=== PATIENT | male | born 1970 | race Caucasian/White ===

== ENCOUNTER 2024-12-27 08:14 | Outpatient (OUT) | payer OTHER, SELFPAY ==
--- NOTE | 2024-12-27 | XR_ITS ---
The [address] [address] Patient Name: JOSSELYN COHEN MRN: [id number] date: 1970 Sex: M Assigned Patient Location: LAB Current Patient Location: LAB Accession/Order Number: [id number] Exam Date: 12/27/2024 08:30 Report Date: 12/27/2024 14:57 At the request of: RAUL MEIER MD Procedure: XR abdomen 1V XR abdomen 1V 12/27/2024 8:34 AM SIGNS AND SYMPTOMS: ^Kidney Stones, N20.0 PROTOCOL: Frontal radiograph of the abdomen and pelvis COMPARISON: 10/08/2020 FINDINGS: Multiple radiodense renal stones are noted bilaterally measuring up to 8 mm in greatest dimension on the left and 9 mm in greatest dimension on the right. No evidence of ureteral or bladder stone. The bony structures are within normal limits. XR/XR abdomen 1V IMPRESSION: Multiple radiodense renal stones are noted bilaterally measuring up to 8 mm in greatest dimension on the left and 9 mm in greatest dimension on the right. No evidence of ureteral or bladder stone. Impression dictated by: Olayinka Carrion M.D. 12/27/2024 2:57 PM Dictation Location: [place] [address] Electronically authenticated by: [id number] Y Date: 12/27/2024 14:57
[2024-12-27 09:35] LABS: Prostate Specific Antigen Dx 3.32 ng/mL (<=4.00)
== END 2024-12-27 08:15 | disposition home or self-care (01) ==
PROVIDERS: Visit Provider Urology
DX: N20.0 Calculus of kidney (principal); R97.20 Elevated prostate specific antigen [PSA]
CPT/HCPCS: 36415; 74018; 84153

== ENCOUNTER 2025-01-13 13:48 | Outpatient (OUT) | payer OTHER, SELFPAY ==
--- OUTSIDE RECORDS SUMMARY | 2025-01-13 13:52 | XMS_ITS | Patient Health Record ---
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 Name Role Phone Usama Garcia Primary Care Provider Allergies No Known Allergies Reason For Referral No Information Medications Medication SIG (Take, Route, Frequency, Duration) Notes Start Date End Date Status Fenofibrate 145 MG 1 tablet Orally Once a day; D uration: 30 days 06/22/2022ctiveLisinopril 5 MG1 tablet Orally Once a day; Duration: 30 days 06/22/2022ctiveSimvastatin 40 MG1 tablet in the evening Orally Once a day; Duration: 30 days06/22/2022ctiveLevothyroxine Sodium 50 MCG1 tablet in the morning on an empty stomach Orally Once a day; Duration: 30 days06/22/2022ctive Albuterol Sulfate HFA 108 (90 Base) MCG/ACT1 puff as needed Inhalation every 4 hrs06/22/2022ctive Plan Of Treatment No Information
--- NOTE | 2025-01-13 13:54 | ECG_ITS ---
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
[2025-01-13 15:02] LABS: Anion Gap 12.7; Blood Urea Nitrogen 16.0 mg/dL (7.0-18.0); Calcium 9.5 mg/dL (8.5-10.1); Carbon Dioxide 28.4 mmol/L (21.0-32.0); Chloride 102 mmol/L (98-107); Estimated GFR (African America >60 (>=60 mL/min/1.73m^2); Estimated GFR (Non-African Ame >60 (>=60 mL/min/1.73m^2); Glucose 87 mg/dL (74-106); Potassium 4.1 mmol/L (3.5-5.1); Sodium 139 mmol/L (136-145)
[2025-01-13 15:04] LABS: Hematocrit 46.0 % (42.0-54.0); Hemoglobin 15.5 g/dL (14.0-18.0); Immature Granulocytes Abs Auto 0.02 10^3/uL (0.00-0.03); Immature Granulocytes Pct Auto 0.2 % (0.0-0.5); Lymphocytes Absolute Auto 2.5 10^3/uL (1.2-3.8); Mean Corpuscular HGB Conc 33.7 g/dL (29.9-35.2); Mean Corpuscular Hemoglobin 29.9 pg (25.9-34.0); Mean Corpuscular Volume 88.8 fL (80.0-94.0); Platelet Count 241 10^3/uL (150-450); Red Blood Count 5.18 10^6/uL (4.70-6.10); White Blood Count 8.3 10^3/uL (4.0-11.0)
[2025-01-13 15:10] LABS: INR 0.97; Partial Thromboplastin Time 25.9 sec (22.3-36.2); Prothrombin Time 10.3 sec (9.0-11.6)
== END 2025-01-13 13:49 | disposition home or self-care (01) ==
PROVIDERS: Visit Provider Urology
DX: Z01.810 Encounter for preprocedural cardiovascular examination (principal); Z01.812 Encounter for preprocedural laboratory examination; N20.0 Calculus of kidney; G47.30 Sleep apnea, unspecified; E03.9 Hypothyroidism, unspecified; E78.5 Hyperlipidemia, unspecified; R97.20 Elevated prostate specific antigen [PSA]; N40.0 Benign prostatic hyperplasia without lower urinary tract symptoms; I10 Essential (primary) hypertension
CPT/HCPCS: 36415; 80048; 85025; 85610; 85730; 93005; G0463

== ENCOUNTER 2025-01-13 13:54 | Outpatient (OUT) | payer OTHER, SELFPAY ==
--- NOTE | 2025-01-13 14:48 | PM.PRESUREVA ---
History of Present Illness History of Present Illness Chief complaint: LEFT KIDNEY STONE, S/P RIGHT STENT Narrative: Mr. Colin Banks is a pleasant 54 year old male who presents to presurgical testing [facility] Medical History (Updated 01/13/25 @ 14:13 by Bhakti Jamison) Sleep apnea ?G47.30 - Sleep apnea, unspecified (ICD-10) Hypothyroidism ?E03.9 - Hypothyroidism, unspecified (ICD-10) Postoperative nausea and vomiting ?R11.2 - Nausea with vomiting, unspecified (ICD-10) ?Z98.890 - Other specified postprocedural states (ICD-10) DVT (deep venous thrombosis) ?I82.409 - Acute embolism and thrombosis of unspecified deep veins of unspecified lower extremity (ICD-10) Thyroid disease ?E07.9 - Disorder of thyroid, unspecified (ICD-10) Right flank pain ?R10.A1 - (ICD-10) Post-void dribbling ?N39.43 - Post-void dribbling (ICD-10) Microscopic hematuria ?R31.29 - Other microscopic hematuria (ICD-10) Hypertension ?I10 - Essential (primary) hypertension (ICD-10) Kidney stone ?N20.0 - Calculus of kidney (ICD-10) Hyperlipidemia ?E78.5 - Hyperlipidemia, unspecified (ICD-10) Family history of prostate cancer ?Z80.42 - Family history of malignant neoplasm of prostate (ICD-10) Elevated PSA ?R97.20 - Elevated prostate specific antigen [PSA] (ICD-10) Chronic prostatitis ?N41.1 - Chronic prostatitis (ICD-10) BPH with urinary obstruction ?N40.1 - Benign prostatic hyperplasia with lower urinary tract symptoms (ICD-10) ?N13.8 - Other obstructive and reflux uropathy (ICD-10) Acquired hypothyroidism ?E03.9 - Hypothyroidism, unspecified (ICD-10) Surgical History (Updated 01/13/25 @ 10:24 by Bhakti Jamison) History of arthroscopic knee surgery ?Z98.890 - Other specified postprocedural states (ICD-10) History of extracorporeal shockwave lithotripsy (ESWL) ?Z98.890 - Other specified postprocedural states (ICD-10) History of prostate biopsy ?Z98.890 - Other specified postprocedural states (ICD-10) Family History (Updated 01/13/25 @ 14:10 by Bhakti Jamison) Other Family history of hypertension Family history of seizures Family history of skin cancer Social History (Updated 01/13/25 @ 14:08 by Bhakti Jamison) Within the past year, how often did you have a drink containing alcohol: never Score interpretation: A score less than 4 is consistent with normal alcohol consumption. 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 Highest level of school completed/degree received: high school graduate Meds Home Medications and Allergies Home Medications ?Medication ?Instructions ?Recorded ?Confirmed ?Type alfuzosin 10 mg tablet,extended 10 mg PO DAILY 01/13/25 01/13/25 History release 24 hr aspirin 81 mg capsule 81 mg PO DAILY 01/13/25 01/13/25 History doxycycline hyclate 100 mg capsule 100 mg PO BID 01/13/25 01/13/25 History dutasteride 0.5 mg capsule 0.5 mg PO DAILY 01/13/25 01/13/25 History fenofibrate 150 mg capsule 150 mg PO DAILY 01/13/25 01/13/25 History gabapentin 400 mg capsule 400 mg PO BEDTIME 01/13/25 01/13/25 History hydrochlorothiazide 12.5 mg capsule 12.5 mg PO DAILY 01/13/25 01/13/25 History levothyroxine 50 mcg tablet 50 mcg PO DAILY 01/13/25 01/13/25 History lisinopril 5 mg tablet 5 mg PO DAILY 01/13/25 01/13/25 History potassium bicarbonate-citric acid 20 meq PO DAILY 01/13/25 01/13/25 History 20 mEq effervescent tablet (Effer-K) simvastatin 40 mg tablet 40 mg PO DAILY 01/13/25 01/13/25 History Allergies Allergy/AdvReac Type Severity Reaction Status Date / Time No Known Drug Allergies Allergy Verified 01/13/25 14:06
--- NOTE | 2025-01-15 09:16 | PM.PRESUREVA ---
History of Present Illness History of Present Illness Chief complaint: LEFT KIDNEY STONE, S/P RIGHT STENT Narrative: Mr. Colin Banks is a pleasant 54-year-old male who presents to presurgical testing with complaints of bilateral flank pain. Diagnosis of right kidney stone and left kidney stone he is scheduled for cystoscopy, right retrograde, right ureter laser, possible right stent placement with Dr. Aquino on January 22, 2025. He is scheduled for cystoscopy, left retrograde, left ureter, laser, possible left stent placement and possible right stent placement removal with Dr. Aquino on 01/27/2025 Review of Systems ROS Narrative REVIEW OF SYSTEMS: Negative except as stated in HPI, ten or more systems reviewed. Constitutional: No fever, chills, weakness ENT: No sore throat or epistaxis Cardiovascular: No edema, chest pain, palpitations, or activity intolerance Respiratory: No shortness of breath, cough, or wheezing Musculoskeletal: No joint pain or swelling Gastrointestinal: No abdominal pain, constipation, diarrhea, or vomiting Genitourinary: No dysuria or hematuria complains of bilateral intermittent flank pain Neurological: No numbness, tingling, weakness, or headache Psychiatric: No mood changes [facility] Medical History (Updated 01/15/25 @ 09:26 by Bhakti Jamison) Sleep apnea ?G47.30 - Sleep apnea, unspecified (ICD-10) Hypothyroidism ?E03.9 - Hypothyroidism, unspecified (ICD-10) Postoperative nausea and vomiting ?R11.2 - Nausea with vomiting, unspecified (ICD-10) ?Z98.890 - Other specified postprocedural states (ICD-10) DVT (deep venous thrombosis) ?I82.409 - Acute embolism and thrombosis of unspecified deep veins of unspecified lower extremity (ICD-10) Thyroid disease ?E07.9 - Disorder of thyroid, unspecified (ICD-10) Right flank pain ?R10.A1 - (ICD-10) Post-void dribbling ?N39.43 - Post-void dribbling (ICD-10) Microscopic hematuria ?R31.29 - Other microscopic hematuria (ICD-10) Hypertension ?I10 - Essential (primary) hypertension (ICD-10) Kidney stone ?N20.0 - Calculus of kidney (ICD-10) Hyperlipidemia ?E78.5 - Hyperlipidemia, unspecified (ICD-10) Family history of prostate cancer ?Z80.42 - Family history of malignant neoplasm of prostate (ICD-10) Elevated PSA ?R97.20 - Elevated prostate specific antigen [PSA] (ICD-10) Chronic prostatitis ?N41.1 - Chronic prostatitis (ICD-10) BPH with urinary obstruction ?N40.1 - Benign prostatic hyperplasia with lower urinary tract symptoms (ICD-10) ?N13.8 - Other obstructive and reflux uropathy (ICD-10) Acquired hypothyroidism ?E03.9 - Hypothyroidism, unspecified (ICD-10) Surgical History (Updated 01/13/25 @ 10:24 by Bhakti Jamison) History of arthroscopic knee surgery ?Z98.890 - Other specified postprocedural states (ICD-10) History of extracorporeal shockwave lithotripsy (ESWL) ?Z98.890 - Other specified postprocedural states (ICD-10) History of prostate biopsy ?Z98.890 - Other specified postprocedural states (ICD-10) Family History (Updated 01/13/25 @ 14:10 by Bhakti Jamison) Other Family history of hypertension Family history of seizures Family history of skin cancer Social History (Updated 01/13/25 @ 14:08 by Bhakti Jamison) Within the past year, how often did you have a drink containing alcohol: never Score interpretation: A score less than 4 is consistent with normal alcohol consumption. 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 Highest level of school completed/degree received: high school graduate Meds Home Medications and Allergies Home Medications ?Medication ?Instructions ?Recorded ?Confirmed ?Type alfuzosin 10 mg tablet,extended 10 mg PO DAILY 01/13/25 01/13/25 History release 24 hr aspirin 81 mg capsule 81 mg PO DAILY 01/13/25 01/13/25 History doxycycline hyclate 100 mg capsule 100 mg PO BID 01/13/25 01/13/25 History dutasteride 0.5 mg capsule 0.5 mg PO DAILY 01/13/25 01/13/25 History fenofibrate 150 mg capsule 150 mg PO DAILY 01/13/25 01/13/25 History gabapentin 400 mg capsule 400 mg PO BEDTIME 01/13/25 01/13/25 History hydrochlorothiazide 12.5 mg capsule 12.5 mg PO DAILY 01/13/25 01/13/25 History levothyroxine 50 mcg tablet 50 mcg PO DAILY 01/13/25 01/13/25 History lisinopril 5 mg tablet 5 mg PO DAILY 01/13/25 01/13/25 History potassium bicarbonate-citric acid 20 meq PO DAILY 01/13/25 01/13/25 History 20 mEq effervescent tablet (Effer-K) simvastatin 40 mg tablet 40 mg PO DAILY 01/13/25 01/13/25 History Allergies Allergy/AdvReac Type Severity Reaction Status Date / Time No Known Drug Allergies Allergy Verified 01/13/25 14:06 Exam Narrative Exam Narrative: Constitutional: Awake, alert, comfortable, well-appearing, nontoxic, interactive, vital signs as charted Head: Normocephalic, atraumatic Eyes: Conjunctiva and lids normal to inspection, pupils normal ENT: Tympanic membranes pearly collins, nonerythematous, noninjected, naris patent, posterior oropharynx clear, oral mucosa moist Neck: Supple, normal appearance, normal range of motion, no meningeal signs, no lymphadenopathy Respiratory: No respiratory distress, breath sounds clear Cardiovascular: Regular rate and rhythm, strong and regular heart tones Abdomen: Nontender, normal bowel sounds, soft, mild bilateral CVA tenderness Musculoskeletal: Normal gait, no swelling or edema Skin: No rashes or induration, no lesions, only visible skin inspected Neuro: No neurological deficits, normal sensation Psychiatric: Oriented ?3, normal affect Assessment and Plan Assessment and Plan (1) Kidney stone on left side: (2) Right kidney stone: Plan He is scheduled for cystoscopy, right retrograde, right ureter, laser, possible right stent placement on 01/22/[address] Aquino. He is scheduled for cystoscopy, left retrograde, left ureter, laser, possible left stent placement, and possible right stent removal on 01/27/[address] Aquino.
== END 2025-01-13 13:55 | disposition home or self-care (01) ==
PROVIDERS: Visit Provider Urology
DX: Z01.818 Encounter for other preprocedural examination (principal); N20.0 Calculus of kidney
CPT/HCPCS: G0463

== ENCOUNTER 2025-01-22 06:38 | Day surgery (SDC) | payer OTHER, SELFPAY ==
[2025-01-13 14:08] VITALS: BP 148/91; TEMP 36.4; O2SAT 97; BMI 32.3
[2025-01-22] VITALS (10 sets, daily range): BP systolic 129–140; BP diastolic 69–97; PULSE 75–97; TEMP 36.2–36.6; O2SAT 94–98; BMI 32.1
--- OUTSIDE RECORDS SUMMARY | 2025-01-22 06:42 | XMS_ITS | Patient Health Record ---
Author Organization The [facility] in [place] Address [address] [place] [address] Care Team Providers Care Decatizer Name Role Phone Usama Garcia Primary Care [...]
[2025-01-22] MEDS: FAMOTIDINE/PF 20 MG/2 ML VIAL IV (07:25)
[2025-01-22] MEDS: CEFAZOLIN SODIUM 2 GM/50 ML D5W PREMIX IV (07:29)
--- NOTE | 2025-01-22 08:37 | PM.URSON ---
Urology Surgery Operative Note Operative Note Procedure Date: 01/22/25 Time Out Performed: yes Pre-op Diagnosis: Recurrent bilateral nephrolithiasis Post-op Diagnosis: same as pre-op Procedures performed: 1. Cystoscopy. 2. Right ureteroscopy. 3. Right pyeloscopy. 4. Right renal calculi basket extraction x 4. 5. Thulium laser lithotripsy of right renal calculi. 6. Placement of 6 Congolese variable length right ureteral stent Anesthesia: SONAM Primary Surgeon: Ludwig Aquino Complications: None Estimated blood loss (mL): 5 Findings: 1. Multiple Sheldon's plaques in the upper mid and lower pole calyces. 2. Multiple calculi in the upper mid and lower poles Specimens: 1. Right renal calculi for stone analysis Drains: 6 Congolese variable length right ureteral stent Indications for Procedures: This gentleman has recurrent bilateral nephrolithiasis. The stone burden is a bit larger on the right side. He now presents for definitive endoscopic right stone manipulation and probable stent placement. He has signed an informed consent after risks were explained. Detailed description of Procedure: The patient was brought to the operating room and placed on the operating room table in the supine position. SCDs were placed on the lower extremities and turned on and functioning during the entire case. Timeout was done by all parties in the room. We all agreed upon the patient's identification and the planned procedures for this patient. Genn. anesthesia was then administered. The patient was then repositioned into the modified dorsal lithotomy position. All pressure points were satisfactorily padded. Genitalia were sterilely prepped and draped in usual fashion. I started by passing a 22 Congolese Olympus cystoscope per urethra and into the bladder. The anterior urethra was normal. The prostatic urethra revealed a dramatic trilobar obstruction of his prostate. The median lobe was extremely large and nearly coapted anteriorly. Panendoscopy in the bladder revealed high-grade trabeculation diffusely. I then passed a Glidewire through the scope and cannulated the right ureter and guided up into the kidney. The scope was removed. A 10/12 Congolese ureteral access sheath was then passed over the wire and slid up to the L5 position. The wire and stylette were then removed. I then passed a flexible ureteroscope through the access sheath and into the ureter. I then ascended up the ureter and then went into the kidney. I looked into the upper mid and lower pole calyces. There were stones in all of the calyces. There were Sheldon's plaques in all of the calyces. I started in the upper pole. I used a 0 tip nitinol basket and I was able to engage the stone and extracted down and out and this was sent for stone analysis. There were no stones in the other upper pole calyx. I then went to the midpole calyces. There was a larger stone burden here. I then used the 270 Angstrom laser fiber through the scope and with the thulium laser first at 7 W then at 10 W on the dusting mode I was able to entirely dust this larger stone burden to submillimeter flecks. Sheldon's plaques were noted in the midpole calyces also. I then went to the lower pole calyces and I was able to basket a few stones there and these were all removed. Upon completion, the right kidney was free of all stones within the collecting system. The scope was removed. I then passed a Glidewire through the sheath up into the kidney and the access sheath was removed. The cystoscope was backloaded over the wire and passed into the bladder. I then slid a 6 Congolese variable length stent over the wire up into the kidney. The wire was removed and there were good curls in the renal pelvis and in the bladder. The bladder was drained of its contents including some clots from the median lobe. The scope was then removed. The anesthetic was then reversed. He was then transferred to PACU in stable condition.
[2025-01-22] MEDS: SOLIFENACIN SUCCINATE 10 MG TABLET PO (08:58)
--- NOTE | 2025-01-22 09:21 | PC.NURSE ---
blood tinged urine no stones and had 2 liters fluids
== END 2025-01-22 10:06 | disposition home or self-care (01) ==
LOC: SURGOUT 06:39
PROVIDERS: Visit Provider Urology
PROC: (CPT 918; principal; 2025-01-22 07:30)
DX: N20.0 Calculus of kidney (principal); E03.9 Hypothyroidism, unspecified; E78.5 Hyperlipidemia, unspecified; N40.0 Benign prostatic hyperplasia without lower urinary tract symptoms; R97.20 Elevated prostate specific antigen [PSA]; I10 Essential (primary) hypertension; N32.89 Other specified disorders of bladder; Z87.891 Personal history of nicotine dependence; G47.33 Obstructive sleep apnea (adult) (pediatric)
CPT/HCPCS: 52356; 36415; 76000; 82365; 99999; J0690; J1100; J1805; J1885; J2003; J2250; J2371; J2405; J2704; J3010; J3490

== ENCOUNTER 2025-01-27 08:07 | Day surgery (SDC) | payer OTHER, SELFPAY ==
[2025-01-27] VITALS (13 sets, daily range): BP systolic 139–183; BP diastolic 86–107; PULSE 46–70; TEMP 36.1–36.3; O2SAT 93–98; BMI 32.1
[2025-01-27] MEDS: CEFAZOLIN SODIUM 2 GM/50 ML D5W PREMIX IV (10:02)
[2025-01-27] MEDS: SCOPOLAMINE 1 MG/3 DAYS TRANSDERM PATCH 1 PATCH TD (10:04)
--- NOTE | 2025-01-27 11:09 | P.URON_ITS ---
Urology Surgery Operative Note Operative Note Procedure Date: 01/27/25 Time Out Performed: yes Pre-op Diagnosis: Left nephrolithiasis; status post right ureteroscopic laser lithotripsy and stent placement Post-op Diagnosis: same as pre-op Procedures performed: 1. Cystoscopy. 2. Right stent removal. 3. Left ureteroscopy. 4. Left pyeloscopy. 5. Thulium laser lithotripsy of multiple left renal calculi. 6. Placement of 6 Armenian variable length left ureteral stent Anesthesia: IANA Primary Surgeon: Ludwig Aquino Complications: None Estimated blood loss (mL): 5 Findings: 1. Multiple Sheldon's plaques in the upper and mid pole calyces. 2. Multiple stones within the lower pole calyces and a few scattered in the mid and upper pole calyces. Specimens: None Drains: 6 Armenian variable length left ureteral stent Indications for Procedures: This gentleman had bilateral recurrent nephrolithiasis. His right side was taken care of last week. He now presents for right stent removal and left ureteroscopic laser lithotripsy and stent placement. He has signed an informed consent after risks were explained. Detailed description of Procedure: The patient was brought to the operating room and placed on the operating room table in the supine position. SCDs were placed on the lower extremities and turned on and functioning during the entire case. Timeout was done by all parties in the room. We all agreed upon the patient's identification and the planned procedures for this patient. Genn. anesthesia was then administered. The patient was then repositioned into the modified dorsal lithotomy position. All pressure points were satisfactorily padded. Genitalia were sterilely prepped and draped in usual fashion. I started by passing a 22 Armenian Olympus cystoscope per urethra and into the bladder. As noted last week he had a very large median lobe which nearly coapt's anteriorly along with large obstructing lateral lobes. The stent was identified and grasped with a flexible grasper and then removed. The scope was then repassed into the bladder and a wire was slid up the left ur eter into the kidney. The scope was then removed. A 10/12 Armenian access sheath was then slid over the wire up to the L5 position. The wire and stylette were then removed. Flexible ureteroscope was passed through the sheath and into the ureter and then up into the kidney. The upper mid and lower pole calyces were all evaluated. There were several Sheldon's plaques in the upper and mid pole calyces. A few scattered stones were seen within the upper and mid pole calyces. In the lower pole calyces there was a pocket of stones. I started there with the 270 Angstrom laser fiber and made contact with the stones and used the thulium laser at 10 W dusting mode. I was able to sequentially dust all of these stones in the lower pole. I then dusted the remaining scattered stones within the mid and upper pole calyces. Minimal bleeding was encountered. Upon completion, there was no evidence of any formed stone remaining. The scope and sheath were then removed after the guidewire was passed up into the kidney. Cystoscope was backloaded over the wire and passed into the bladder. A 6 Armenian variable length stent was slid over the wire up to the left kidney. The wire was removed and there were good curls in the kidney and in the bladder. The bladder was drained of its contents and the scope was then removed. Anesthetic was then reversed. He was then [facility] and wheeled to PACU in stable condition.
[2025-01-27] MEDS: HYOSCYAMINE SULFATE 0.125 MG TAB.SUBL 0.25 MG SL (11:26)
--- NOTE | 2025-01-27 13:19 | PC.NURSE ---
1247: late entry patient urinated 2 times blood tinged urine.
== END 2025-01-27 12:47 | disposition home or self-care (01) ==
PROVIDERS: Visit Provider Urology
PROC: (CPT 918; principal; 2025-01-27 10:00)
DX: N20.0 Calculus of kidney (principal); Z00.00 Encounter for general adult medical examination without abnormal findings; I10 Essential (primary) hypertension; E78.2 Mixed hyperlipidemia; E03.9 Hypothyroidism, unspecified; Z51.81 Encounter for therapeutic drug level monitoring; R97.20 Elevated prostate specific antigen [PSA]; N40.0 Benign prostatic hyperplasia without lower urinary tract symptoms; Z87.891 Personal history of nicotine dependence; G47.33 Obstructive sleep apnea (adult) (pediatric)
CPT/HCPCS: 52356; 36415; 76000; 80053; 80061; 84443; 85025; J0131; J0690; J1100; J1885; J2250; J2405; J3010

== ENCOUNTER 2025-01-27 08:09 | Outpatient (OUT) | payer OTHER, SELFPAY ==
[2025-01-27 09:24] LABS: Hematocrit 46.3 % (42.0-54.0); Hemoglobin 15.5 g/dL (14.0-18.0); Immature Granulocytes Abs Auto 0.06 10^3/uL (0.00-0.03); Immature Granulocytes Pct Auto 0.8 % (0.0-0.5); Lymphocytes Absolute Auto 2.1 10^3/uL (1.2-3.8); Mean Corpuscular HGB Conc 33.5 g/dL (29.9-35.2); Mean Corpuscular Hemoglobin 29.9 pg (25.9-34.0); Mean Corpuscular Volume 89.2 fL (80.0-94.0); Platelet Count 237 10^3/uL (150-450); Red Blood Count 5.19 10^6/uL (4.70-6.10); White Blood Count 7.5 10^3/uL (4.0-11.0)
[2025-01-27 09:52] LABS: Alanine Aminotransferase 43 U/L (16-63); Albumin Globulin Ratio 1.0; Albumin Level 3.6 g/dL (3.4-5.0); Alkaline Phosphatase 62 U/L (46-116); Anion Gap 13.4; Aspartate Amino Transferase 19 U/L (15-37); Blood Urea Nitrogen 23.0 mg/dL (7.0-18.0); Calcium 8.7 mg/dL (8.5-10.1); Carbon Dioxide 29.2 mmol/L (21.0-32.0); Chloride 104 mmol/L (98-107); Cholesterol 205 mg/dL (<=200); Estimated GFR (African America >60 (>=60 mL/min/1.73m^2); Estimated GFR (Non-African Ame 58 (>=60 mL/min/1.73m^2); Globulin 3.6 g/dL; Glucose 99 mg/dL (74-106); HDL Cholesterol 51 mg/dL (40-60); Potassium 4.6 mmol/L (3.5-5.1); Sodium 142 mmol/L (136-145); TSH W/ REFLEX FT4 1.803 uIU/mL (0.358-3.740); Total Protein 7.2 g/dL (6.4-8.2); Triglycerides 156 mg/dL (<=150); VLDL CHOLESTEROL 31.2 mg/dL
== END 2025-01-27 08:10 | disposition home or self-care (01) ==
LOC: LAB 08:10
DX: Z00.00 Encounter for general adult medical examination without abnormal findings (principal); I10 Essential (primary) hypertension; E78.2 Mixed hyperlipidemia; E03.9 Hypothyroidism, unspecified; Z51.81 Encounter for therapeutic drug level monitoring
CPT/HCPCS: 36415; 80053; 80061; 84443; 85025

== ENCOUNTER 2025-02-09 13:13 | Outpatient (OUT) | payer OTHER, SELFPAY | END 2025-02-09 13:14 | disposition home or self-care (01) | LOC: PST 13:13 | PROVIDERS: Visit Provider Urology | DX: Z01.818 Encounter for other preprocedural examination (principal); N40.1 Benign prostatic hyperplasia with lower urinary tract symptoms; I10 Essential (primary) hypertension; E78.5 Hyperlipidemia, unspecified; Z87.442 Personal history of urinary calculi; E03.9 Hypothyroidism, unspecified; R97.20 Elevated prostate specific antigen [PSA] ==

== ENCOUNTER 2025-02-12 09:00 | Day surgery (SDC) | payer OTHER, SELFPAY ==
[2025-02-12] VITALS (16 sets, daily range): BP systolic 123–146; BP diastolic 56–90; PULSE 60–82; TEMP 36.2–37.2; O2SAT 92–98; BMI 31.9
[2025-02-12] MEDS: SCOPOLAMINE 1 MG/3 DAYS TRANSDERM PATCH 1 PATCH TD (11:23)
[2025-02-12] MEDS: LEVOFLOXACIN 500 MG/100 ML-D5W PREMIX 100 MG IV (11:25)
[2025-02-12] MEDS: 0.9 % SODIUM CHLORIDE 1,000 ML 50 ML IV (13:13)
--- NOTE | 2025-02-12 13:19 | PM.URSON ---
Urology Surgery Operative Note Operative Note Procedure Date: 02/12/25 Time Out Performed: yes Pre-op Diagnosis: 1. BPH with LUTS refractory to medications. 2. Status post left stent placement Post-op Diagnosis: same as pre-op Procedures performed: 1. Cystoscopy. 2. Left stent removal. 3. Transurethral resection of the prostate. Anesthesia: GETA Primary Surgeon: Ludwig Aquino Complications: None Estimated blood loss (mL): 20 Findings: 1. None encrusted stent. 2. Large obstructing prostate in a trilobar fashion. Specimens: Prostate chips Drains: 22 German three-way coud? Duffy catheter taped to traction and CBI Indications for Procedures: This gentleman has rather significant bladder outlet obstructive symptoms despite maximal medications. He is strongly desirous for a TURP. He has signed an informed consent after all risks were explained. He also has a left stent in place and he has been consented for removal of this. Some of these risks include bleeding, infection, anesthesia, urinary incontinence both temporary and permanent, erectile dysfunction, DVT and possible pulmonary embolism, possible need for further operations to name a few. Detailed description of Procedure: The patient was brought to the operating room and placed on the operating room table in the supine position. SCDs were placed on the lower extremities and turned on and functioning during the entire case. Timeout was done by all parties in the room. We all agreed upon the patient's identification and the planned procedures for this patient. Genn. anesthesia was then administered. The patient was then repositioned into the modified dorsal lithotomy position. All pressure points were satisfactorily padded. Genitalia were sterilely prepped and draped in usual fashion. I started by passing a 22 German Olympus cystoscope per urethra and into the bladder. A flexible grasping forceps was passed and the stent was grasped and then removed. I then passed a 26 German Olympus resectoscope with a standard bipolar loop electrode per urethra and into the bladder. He had an enormous median lobe which coapted anteriorly and obstructing lateral lobes. The ureteral orifices were marked with a loop electrode. I then started on the median lobe and uniformly resected this down to the bladder neck level. I then resected posteriorly from the bladder neck to the veru level. The capacious left lateral lobe was then resected similarly to the capsular level. The right lateral lobe was similarly resected. The capacious anterior tissue was then resected. The apex was then opened up. His obstructing apical lobes protruded distal to the veru. The resection bed was thoroughly coagulated. The [employer] evacuator was used to get all the prostate chips out of the bladder. These were sent for permanent sections. Upon completion, with the scope at the apex, the prostatic urethra and bladder neck were now wide open. There was no bleeding. There were no chips remaining in the bladder. The scope was then removed. I then placed a 22 German three-way coud? Duffy catheter in the bladder. It was manually irrigated with a Mic syringe to verify correct placement. 30 cc of fluid was placed in the balloon. It was taped to traction and CBI was started. It irrigated clear. The anesthetic was then reversed. He was then transferred to a [facility] bed and wheeled to PACU in stable condition. Urinary Catheter Management Urinary Catheter Management 3-way Urethral: Cath placed during this visit: no
[2025-02-12] MEDS: SOLIFENACIN SUCCINATE 10 MG TABLET PO (13:25)
[2025-02-12] MEDS: ENOXAPARIN SODIUM 60 MG/0.6 ML SYRINGE SUBQ (13:25)
[2025-02-12] MEDS: SODIUM CHLORIDE IRRIG SOLUTION 3,000 ML 3000 ML IRR ×13 (14:18→23:35)
[2025-02-12] MEDS: HYDROCODONE/ACET 5-325 MG TABLET 1 TAB PO ×2 (16:18→23:36)
[2025-02-12] MEDS: CEFAZOLIN SODIUM/DEXTROSE,ISO 1 GM/50 ML PREMIX IV ×2 (17:03→23:36)
[2025-02-12] MEDS: ATORVASTATIN CALCIUM 20 MG TABLET PO (20:51)
[2025-02-12] MEDS: GABAPENTIN 400 MG CAPSULE PO (22:32)
[2025-02-12] MEDS: 0.9 % SODIUM CHLORIDE 1,000 ML 80 ML IV (23:03)
[2025-02-12] MEDS: TEMAZEPAM 15 MG CAPSULE PO (23:36)
[2025-02-13] MEDS: ENOXAPARIN SODIUM 60 MG/0.6 ML SYRINGE SUBQ (01:03)
[2025-02-13] MEDS: SODIUM CHLORIDE IRRIG SOLUTION 3,000 ML 3000 ML IRR (01:44)
[2025-02-13 04:11] VITALS: BP 141/72; PULSE 53; TEMP 36.8; O2SAT 95
[2025-02-13] MEDS: LEVOTHYROXINE SODIUM 25 MCG TABLET 50 MCG PO (06:09)
[2025-02-13 07:56] VITALS: BP 136/73; PULSE 61; TEMP 34.7; O2SAT 94
[2025-02-13] MEDS: HYDROCHLOROTHIAZIDE 25 MG TABLET 12.5 MG PO (08:34)
[2025-02-13] MEDS: OXYBUTYNIN CHLORIDE 5 MG TAB XL 10 MG PO (08:34)
[2025-02-13] MEDS: SOLIFENACIN SUCCINATE 10 MG TABLET PO (08:34)
[2025-02-13] MEDS: DUTASTERIDE 0.5 MG CAPSULE PO (08:34)
[2025-02-13] MEDS: LISINOPRIL 5 MG TABLET PO (08:34)
[2025-02-13] MEDS: POTASSIUM BICARBONATE/CIT 25 MEQ TABLET EFF PO (08:35)
[2025-02-13] MEDS: HYDROCODONE/ACET 5-325 MG TABLET 1 TAB PO (08:35)
== END 2025-02-13 09:14 | disposition home or self-care (01) ==
LOC: SURGOUT 12:55 → MS 13:34
PROVIDERS: Visit Provider Urology
PROC: (CPT 914; principal; 2025-02-12 10:20)
DX: N40.1 Benign prostatic hyperplasia with lower urinary tract symptoms (principal); I10 Essential (primary) hypertension; E78.5 Hyperlipidemia, unspecified; Z87.442 Personal history of urinary calculi; E03.9 Hypothyroidism, unspecified; R97.20 Elevated prostate specific antigen [PSA]; Z96.0 Presence of urogenital implants; G47.33 Obstructive sleep apnea (adult) (pediatric)
CPT/HCPCS: 52601; 88305; 96365; 96372; J0690; J1100; J1171; J1650; J2250; J2405; J2704

== ENCOUNTER 2025-02-14 10:00 | Emergency (ER) | payer OTHER, SELFPAY ==
--- OUTSIDE RECORDS SUMMARY | 2025-02-13 19:28 | XMS_ITS | Continuity of Care Document ---
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 Name Role Phone Waylon Griffin DO Primary Care Provider Yanet Mesa NP Attending Provider Ludwig Aquino MD Attending Provider [phone] Waylon Griffin DO Attending Provider Care Teams Visit Care Team Team Status: Inactive Member Role/Relationship Status Dates Waylon Griffin DO Primary Care Provider Active Start: November 27, 2024 End: November 27, 2024Pejuan Mesa NPAttyuriy ProviderActiveStart: November 27, 2024 End: November 27, 2024 Visit Care Team Team Status: Active Member Role/Relationship Status Dates Waylon Griffin DO Primary Care Provider Active Start: December 27, 2024 Mark Jenkins ProviderActiveStart: December 27, 2024 Visit Care Team Team Status: Active Member Role/Relationship Status Dates Waylon Griffin DO Primary Care Provider Active Start: January 13, 2025 Mark Jenkins ProviderActiveStart: January 13, 2025 Visit Care Team Team Status: Active Member Role/Relationship Status Dates Waylon Griffin DO Primary Care Provider Active Start: January 22, 2025 Mark Jenkins ProviderActiveStart: January 22, 2025 Visit Care Team Team Status: Active Member Role/Relationship Status Dates Waylon Griffin DO Primary Care Provider Active Start: January 27, 2025 Waylon Griffin DOAttending ProviderActiveStart: January 27, 2025 Patient Care Team Team Status: Inactive Member Role/Relationship Status Dates Ludwig Aquino MD Attending Provider Active St art: February 12, 2025 End: February 12, 2025 Chief Complaint and Reason for Visit Chief Complaint Admit Date radames/annual November 27, 2024 4:02pm Unknown February 12, 2025 1 :00pm Reason for Visit Admit Date BMI 31.0-31.9,adult November 27, 2024 4:02pm Obstructive sleep apnea November 27, 2024 4:02pm Hypertension November 27, 2024 4:02pm Allergies, Adverse Reactions, Alerts Allergen Type Severity Reaction Last Updated Verified Status No Known Allergies Allergy Unknown June 03, 2024 3:26pmYesActive Social History Smoking Status Unknown if ever smoked Observation Status Observation Response Date of Response Legal Sex Male (finding) [facility] 1970 Family History Relationship Condition Age at Onset Recorded Date/T fauzia mother Diabetes mellitus Unknown fatherHypertensionUnknown Problems Active Problems Problem Diagnosis/Recorded Date Onset Date Stat us Obstructive sleep apnea August 15, 2023 3:39pm Unknown Active History of blood clots April 26, 2023 4:20pm Unkn own Active Acquired hypothyroidism April 26, 2023 4:20pm Unk nown Active Mixed hyperlipidemia April 26, 2023 4:20pm Unknow n Active Primary hypertension April 26, 2023 4:20pm Unknow n Active Benign prostatic hyperplasia with lower urinary tract symptoms April 26, 2023 4:20pm Unknown Active BMI 31.0-31.9,adult August 15, 2023 3:40pm Unknown Active Medications Medication Status Dose Units Route Directions Qty Days Refills S tart Date Stop Date End Date Reason(s) Instructions Adherence Gabapentin 400 mg capsule Discontinued 400 MG PO Daily at bedtime 90 90 1 September 20, 2023 9:27am June 03, 2024 3:40pmCervical radiculopathy at C6 Radiculopathy, cervical regionHydrochlorothiazide 12.5 mg capsuleActive0.ROUTE .VXYQDDB306Dkolzqk 2024 3:49pmPrimary hypertension Essential (primary) hypertensionTAKE 1 CAPSULE BY MOUTH EVERY MORNINGUnknown Hydrochlorothiazide 50 mg tabletDiscontinuedMaruary 2017 12:00amDe2021 4:54pmPotassium Chloride 10 mEq Tablet Extended ReleaseDiscontinued March 28, 2017 12:00amDece2021 4:59pmSimvastatin 40 mg tablet DiscontinuedMarch 28, 2017 12:00am2021 4:57pmTamsulosin 0.4 mg capsule,extended release 24hrDiscontinuedMaruary 2017 12:00amDe2021 5:00pmLevothyroxine 50 mcg rfckcjVdxjdprerqjk88FQSKFPuxts morning March 28, 2017 12:00amMarch 2024 3:40pmLisinopril 5 mg tablet Mazqnhwtjgys1FRZGNzfvj morningMarch 28, 2017 12:00amFebruary 2023 4:21pmEzetimibe 10 mg tabletDiscontinuedJanuary 2017 12:00amDe2021 4:53pmSimvastatin 40 mg YvcccxScsuzweohjcv61ZJJTPcoru morningFebruary 20, 2022 12:00amMarc 2024 3:40pmHydrochlorothiazide 12.5 mg capsule Gklffbgdsucy68.5MGPOEvery morningFebruary 20, 2022 12:00amMarc 2024 3:40pmDutasteride (Avodart) 0.5 mg capsuleDiscontinued0.5MGPOEvery morning February 20, 2022 12:00amSeptember 2024 3:13pmAlfuzosin (Uroxatral) 10 mg tablet extended release 24 uuZmxkaswvtaqx29FVHVLcllv morningFebruary 20, 2022 12:00amSept2024 3:13pmFenofibrate Nanocrystallized (Tricor) 145 mg segcjdYefuqpakaybz747WKQSHgqzx morningDece2021 12:00amMarch 2024 3:30pmPotassium Bicarb-Citric Acid (Effer-K) 20 mEq tablet, effervescent Ckfect35YZHTEDcrzx morningDece2021 12:00amUnknownAspirin 325 mg GjlqsgsLtsnfddkhffs280TGFOHtfmx morningDeceer 2021 12:00amFebruary 2023 4:39pmAspirin 81 mg lmtffqlUmtzyq22JFNQPqjlxLzutmkcl 2023 12:00am UnknownTolterodine 2 mg capsule,extended release 80zgHtdbpwujlmpo4WMZVFjfdu morningFebruary 2023 12:00amFebruary 2023 9:22amGabapentin 400 mg uubaumnDuzgehzotncc101AIQCEmtzc at bedtimeFebruary 2023 12:00amJuly 2023 9:29amSolifenacin 5 mg jaxndaQtffnkvxjdwi0FZJCZvrfeSlkdyoqh 2023 12:00amFebruary 2023 6:24amFreeTextSi tablet Orally Once a day; Note: Source Status: Taking; Provider: Dr. Duárnpentin 400 mg cfjjxcwMnvtgy145PX PODaily at rqqavec58940Iqsco 2024 3:38pmCervical radiculopathy at C6 Radiculopathy, cervical regionUnknownHydrochlorothiazide 12.5 mg capsule Rnetodrkrbvw66.5MGPOEvery hmxtmbw817Kjnht 2024 3:38pmOctober 2024 3:49pmPrimary hypertension Essential (primary) hypertensionLevothyroxine 50 mcg trjqxxKlnzzp29MOASTRcitm pkhwjgt880Syeet 2024 3:39pmAcquired hypothyroidism Hypothyroidism, unspecifiedUnknownLisinopril 5 mg cmiimoEndimn4TEEOBpnyf morning 903Mar 2024 3:39pmPrimary hypertension Essential (primary) hypertensionUnknownSimvastatin 40 mg yzjqqrJwcihh45HNHFHbvgj waxevwr450Upmdg 2024 3:40pmMixed hyperlipidemia Mixed hyperlipidemiaUnknownLisinopril 5 mg ihdfhsEopgaywiqzgn0GBKFMynra morning 901February 2023 4:16pmMar 2024 3:40pm Immunizations Immunization Event Date Not Given Reason Dose Number Dowel Inspector Lot Number Reason(s) Given Vaccine Information Statement (VIS) Detail Administration Location COVID-19 mRNA Comirnatjulito (Pfizer) January 03, 2021 COVID-19 mRNA, Comirnatjulito (Pfizer)January 25, 2021 Relevant Diagnostic Tests and/or Laboratory Data Laboratory Results Test Collection Date/Time Result Date/Time Result Interpretation Reference Range Result Comment Performing Site Prostate Specific Antigen Total December 27, 2024 7:48am December 27, 2024 7:48am 3.32 ng/mL <=4.00Basophils # (Auto)January 13, 2025 2:45pmNov2024 2:45pm0.1 10 3/uL0.0-0.1Activated Partial Thromboplast TimeJanuary 13, 2025 2:45pmNov2024 2:45pm25.9 sec22.3-36.2Prothromb Time International RatioNove2024 2:45pmNov2024 2:45pm0.97DESIRED INR:2.0-3.0 CONDITIONS NOT LISTED BELOW2.5-3.5 FOR PROSTHETIC HEART VALVE REPLACEMENT2.5-3.5 RECURRENT THROMBOSISAnion GapJanuary 13, 2025 2:45pmNov2024 2:45pm12.7Stone SourceJanuary 22, 2025 7:56amNovember 2024 7:56amComment.Right Kidney Basophils # (Auto)January 27, 2025 8:22amNovember 2024 8:22am0.1 10 3/uL0.0-0.1Cholesterol/HDL RatioNove2024 8:22amNovember 2024 8:22am4.03.3 - 4.4 LOW RISK4.4 - 7.1 AVERAGE RISK7.1 - 11.0 MODERATE RISK>11.0 HIGH RISKAnion GapJanuary 27, 2025 8:22amNovember 2024 8:22am13.4 Thyroid Stimulating Hormone 3rd GenNov2024 8:22amNovember 2024 8:22am1.803 u[iU]/mL0.358-3.740Basophils (%) (Auto)January 13, 2025 2:45pm January 13, 2025 2:45pm0.6 %0.2-2.0Prothrombin TimeNov2024 2:45pm January 13, 2025 2:45pm10.3 sec9.0-11.6BUN/Creatinine RatioNove2024 2:45pmNov2024 2:45pm14.7Stone Calcium Hydrogen PhosphateNov2024 7:56amNovember 2024 7:56amTNP.January 22, 2025 7:56amTNP. Basophils (%) (Auto)January 27, 2025 8:22amNovember 2024 8:22am0.8 % 0.2-2.0Cholesterol LevelNovember 2024 8:22amNovember 2024 8:73df966 mg/dLAbove high normal<=200Albumin/Globulin RatioNove2024 8:22am January 27, 2025 8:22am1.0Eosinophils # (Auto)January 13, 2025 2:45pm January 13, 2025 2:45pm0.2 10 3/uL0.0-0.7Blood Urea NitrogenJanuary 13, 2025 2:45pmNov2024 2:45pm16.0 mg/dL7.0-18.0Stone Calcium Phosphate January 22, 2025 7:56amNovember 2024 7:56amTNP.Eosinophils # (Auto) January 27, 2025 8:22amNovember 2024 8:22am0.4 10 3/uL0.0-0.7HDL CholesterolNov2024 8:22amNovemb2024 8:22am51 mg/dL40-60> or =60 mg/dl - LOW CARDIOVASCULAR RISK<40 mg/dl - HIGH CARDIOVASCULAR RISKAlbumin January 27, 2025 8:22amNovember 2024 8:22am3.6 g/dL3.4-5.0Eosinophils (%) (Auto)January 13, 2025 2:45pmNov2024 2:45pm2.2 %0.9-7.0Calcium LevelNov2024 2:45pmNov2024 2:45pm9.5 mg/dL8.5-10.1Stone Calcium CarbonateJanuary 22, 2025 7:56amNovemb2024 7:56amTNP. January 22, 2025 7:56amTNP.Eosinophils (%) (Auto)January 27, 2025 8:22am January 27, 2025 8:22am4.8 %0.9-7.0LDL Cholesterol, CalculatedNov2024 8:22amNovemb2024 8:20ry743.0 mg/dL<100 mg/dl CVWXENT430-035 mg/dl NEAR OR ABOVE ROODMWF516-605 mg/dl BORDERLINE EPAW858-781 mg/dl HIGH>190 mg/dl VERY HIGHAlkaline PhosphataseJanuary 27, 2025 8:22amNove2024 8:22am62 U/Y03-185GyyzqrnqokWywxwhwe 2024 2:45pmNov2024 2:45pm 46.0 %42.0-54.0Chloride LevelOw[facility] 2024 2:45pmNov2024 2:45pm 102 mmol/B85-813Tmxok StruviteAtrium Health2024 7:56amNovemb2024 7:56amTNP.HematocritNov2024 8:22amNove2024 8:22am46.3 % 42.0-54.0Triglycerides LevelOwensboro Health Regional Hospital 2024 8:22amNove2024 8:22am 156 mg/dLAbove high normal<=150Alanine Aminotransferase (ALT/SGPT)January 27, 2025 8:22amNove2024 8:22am43 U/Q51-23GypvarbceqEsrpiyum 4th, 2025 2:45pmNov2024 2:45pm15.5 g/dL14.0-18.0Carbon Dioxide LevelNov2024 2:45pmNov2024 2:45pm28.4 mmol/L21.0-32.0Stone [place]bery[place] January 22, 2025 7:56amNove2024 7:56amTNP.HemoglobinJanuary 27, 2025 8:22amNove2024 8:22am15.5 g/dL14.0-18.0VLDL CholesterolJanuary 27, 2025 8:22amNove2024 8:22am31.2 mg/dLAspartate Amino Transf (AST/SGOT)January 27, 2025 8:22amNove2024 8:22am19 U/L15-37 Immature Granulocyte # (Auto)January 13, 2025 2:45pmNov2024 2:45pm 0.02 10 3/uL0.00-0.03CreatinineJanuary 13, 2025 2:45pmNov2024 2:45pm1.09 mg/dL0.70-1.30Stone Uric AcidJanuary 22, 2025 7:56amNove2024 7:56amTNP.Immature Granulocyte # (Auto)January 27, 2025 8:amNove2024 8:22am0.06 10 3/uLAbove high normal0.00-0.03BUN/Creatinine Ratio January 27, 2025 8:22amNove2024 8:22am17.8Immature Granulocyte % (Auto)January 13, 2025 2:45pmNov2024 2:45pm0.2 %0.0-0.5Estimated GFR ()January 13, 2025 2:45pmNov2024 2:45pm>60>=60 mL/min/1.73m 2Stone Uric Acid DihydrateNove2024 7:56amNove2024 7:56amTNP.Immature Granulocyte % (Auto)January 27, 2025 8:22amNovember 2024 8:22am0.8 %Above high normal0.0-0.5Blood Urea NitrogenNov2024 8:22amNovember 2024 8:22am23.0 mg/dLAbove high normal7.0-18.0 Lymphocytes # (Auto)January 13, 2025 2:45pmNov2024 2:45pm2.5 10 3/uL1.2-3.8Estimated GFR (Non- AmericanNov2024 2:45pmNov2024 2:45pm>60>=60 mL/min/1.73m 2Stone Ammonium Acid UrateNove2024 7:56amNovember 2024 7:56amTNP.Lymphocytes # (Auto)January 27, 2025 8:22amNovember 2024 8:22am2.1 10 3/uL1.2-3.8Calcium LevelNov2024 8:22amNovemb2024 8:22am8.7 mg/dL8.5-10.1Lymphocytes (%) (Auto) January 13, 2025 2:45pmNov2024 2:45pm29.7 %20.5-60.0Glucose Level January 13, 2025 2:45pmNov2024 2:45pm87 mg/fH07-056Wspqo Sodium Acid UrateNove2024 7:56amNove2024 7:56amTNP.Lymphocytes (%) (Auto)January 27, 2025 8:22amNovemb2024 8:22am28.1 %20.5-60.0 Chloride LevelNov2024 8:22amNovember 2024 8:98xf849 mmol/L 98-107Mean Corpuscular HemoglobinNov2024 2:45pmNov2024 2:45pm29.9 pg25.9-34.0Potassium LevelJanuary 13, 2025 2:45pmNov2024 2:45pm4.1 mmol/L3.5-5.1Stone 2,8 DihydroxyadenineJanuary 22, 2025 7:56am January 22, 2025 7:56amTNP.Mean Corpuscular HemoglobinNovember 2024 8:22amNovember 2024 8:22am29.9 pg25.9-34.0Carbon Dioxide LevelNov2024 8:22amNovember 2024 8:22am29.2 mmol/L21.0-32.0Mean Corpuscular Hemoglobin ConcentNov2024 2:45pmNov2024 2:45pm33.7 g/dL 29.9-35.2Sodium LevelNov2024 2:45pmNov2024 2:84va275 mmol/Z644-686Tdmna ColorJanuary 22, 2025 7:56amNovember 2024 7:56am Brown.Mean Corpuscular Hemoglobin ConcentJanuary 27, 2025 8:22amNovember 2024 8:22am33.5 g/dL29.9-35.2CreatinineJanuary 27, 2025 8:22amNovember 2024 8:22am1.29 mg/dL0.70-1.30Mean Corpuscular VolumeJanuary 13, 2025 2:45pmNov2024 2:45pm88.8 fL80.0-94.0Stone XanthineJanuary 22, 2025 7:56amNovember 2024 7:56amTNP.Mean Corpuscular VolumeJanuary 27, 2025 8:22amNovember 2024 8:22am89.2 fL80.0-94.0Estimated GFR () January 27, 2025 8:amNove2024 8:22am>60>=60 mL/min/1.73m 2 Monocytes # (Auto)January 13, 2025 2:45pmNov2024 2:45pm0.6 10 3/uL 0.3-0.8[place]tz CystineJanuary 22, 2025 7:56amNovember 2024 7:56amTNP. Monocytes # (Auto)January 27, 2025 8:22amNovember 2024 8:22am0.5 10 3/uL0.3-0.8Estimated GFR (Non- AmericanJanuary 27, 2025 8:22amNovember 2024 8:31gc45Kxjqh low normal>=60 mL/min/1.73m 2Monocytes (%) (Auto) January 13, 2025 2:45pmNovember 2024 2:45pm6.9 %1.7-12.0Stone Cholesterol January 22, 2025 7:56amNovember 2024 7:56amTNP.Monocytes (%) (Auto) January 27, 2025 8:22amNovember 2024 8:22am7.2 %1.7-12.0Globulin January 27, 2025 8:22amNovember 2024 8:22am3.6 g/dLMean Platelet Volume January 13, 2025 2:45pmNov2024 2:45pm9.6 fL9.5-13.5Stone Calcium Bilirubin2024 7:56amNovember 2024 7:56amTNP.Mean Platelet VolumeJanuary 27, 2025 8:amNovember 2024 8:22am9.6 fL 9.5-13.5Glucose LevelJanuary 27, 2025 8:22amNovember 2024 8:22am99 mg/dM53-923Fqukjcobsaf # (Auto)January 13, 2025 2:45pmNov2024 2:45pm5.0 10 3/uL1.4-6.5Stone BilirubinateNove2024 7:56amNovember 2024 7:56amTNP.Neutrophils # (Auto)January 27, 2025 8:22amNovemb2024 8:22am4.4 10 3/uL1.4-6.5Potassium LevelJanuary 27, 2025 8:22am January 27, 2025 8:22am4.6 mmol/L3.5-5.1Neutrophils (%) (Auto)January 13, 2025 2:45pmNov2024 2:45pm60.4 %43.0-75.0Stone Calcium Palmitate January 22, 2025 7:56amNovember 2024 7:56amTNP.Neutrophils (%) (Auto) January 27, 2025 8:22amNoveer 2024 8:22am58.3 %43.0-75.0Sodium Level January 27, 2025 8:22amNovember 2024 8:12he350 mmol/P386-175Wwmabvlh CountJanuary 13, 2025 2:45pmJanuary 13, 2025 2:34sv568 10 3/dE779-115Ocnyl Calcium StearateNove2024 7:56amNovember 2024 7:56amTNP.Platelet CountJanuary 27, 2025 8:22amNove2024 8:37iz967 10 3/sK590-444 Total BilirubinJanuary 27, 2025 8:22amNove2024 8:22am0.5 mg/dL 0.2-1.0Red Blood CountJanuary 13, 2025 2:45pmJanuary 13, 2025 2:45pm5.18 10 6/uL4.70-6.10Stone TriamtereneJanuary 22, 2025 7:56amNoveer 2024 7:56amTNP.Red Blood CountJanuary 27, 2025 8:22amNoveer 2024 8:22am 5.19 10 6/uL4.70-6.10Total ProteinJanuary 27, 2025 8:22amNoveer 2024 8:22am7.2 g/dL6.4-8.2Red Cell Distribution WidthJanuary 13, 2025 2:45pm January 13, 2025 2:45pm12.3 %11.0-15.0Stone Drug or MetaboliteJanuary 22, 2025 7:56amNovember 2024 7:56amTNP.Red Cell Distribution WidthJanuary 27, 2025 8:22amNovember 2024 8:22am12.3 %11.0-15.0Corrected White Blood CountJanuary 13, 2025 2:45pmJanuary 13, 2025 2:45pm8.3 10 3/uL4.0-11.0Stone SizeNovember 2024 7:56amNovember 2024 7:70df1k9 mm.Multiple pieces received. Dimensions of the largest piecereported.Corrected White Blood Count January 27, 2025 8:22amNovember 2024 8:22am7.5 10 3/uL4.0-11.0Stone Other ConstituentJanuary 22, 2025 7:56amNovember 2024 7:56amTNP.Stone Comment 2024 7:56amNovember 2024 7:56amTNP.Stone Comment January 22, 2025 7:56amNovember 2024 7:56amComment.Calculus received wet. Wet calculi must be dried beforeanalysis, which delays reporting of results.Leaving calculiwet (such as water, saline, blood, urine) may lead tochanges in composition.Performed at: [address] [id number] Director: Sneha Berman PhD, Phone: [phone] WeightJanuary 22, 2025 7:56amNovember 2024 7:56am50 mg.Stone Calcium Oxalate MonohydrateNovember 2024 7:56amNovember 2024 7:56am90 %. Stone Calcium Oxalate DihydrateNovember 2024 7:56amNovember 2024 7:56am10 %. Vital Signs Vital Reading Result Reference Range Collection Date/Time Height 74 [in_i] November 27, 2024 3:62gtSgelzz304.94 kgSept2024 3:13pmHeart Rate 76 /sex03-258Jbcsbryuj 18th, 2025 3:13pmOxygen saturation by Pulse mzwsliwg84 % 95-100Sept2024 3:13pmBP Wddbkben462 mm[Hg]100-140September 2024 3:13pmBP Uycswtkev01 mm[Hg]60-100September 2024 3:13pmBMI (Body Mass Index)31.9 kg/x3Gwltrknhs2024 3:13pm Advance Directives Advance Directive Response Recorded Date/ Time Advance Directives No March 28, 2017 2:19pm Insurance Providers Guarantor Berkley Rader Address [address] [address]Tgugphd Info.Home Phone: Payer Group Member ID Coverage Type Subscriber Relationship to Subscriber Effective Date Expiration Date [employer] Id: [id number] Saam , D Id: [id number] [address] [address] Home Phone: Email: [email or web address] Encounters Encounter Location(s) Arrival/Admit Date Discharge/Departure Date Discharge/Departure Disposition Provider(s) Departed Physician/ Provider Office Visit -[facility] November 27, 2024 4:02pm November 27, 2024 4:23pm Discharged to home care or self care (routine discharge) Yanet Mesa NP Non-patient / Non-visit -[facility] O ctober 2024 8:48am Tammy Ureña-patient / Jzs-zyrzl-[facility] 2024 2:45pmTammy Ureña-patient / Fvr-jabrj-Hdiqv [facility]November 2024 7:56amPTammy Kearns-patient / Hlq-lqjpf-Daceb [facility]November 2024 8:22amMattJacki Henriquez Referred-[facility] 1:00pm February 12, 2025 1:01pmDischarged to home care or self care (routine discharge)Ludwig Aquino MD Recent Diagnosis Onset Date Admit Date BMI 31.0-31.9,adult Unknown November 272024 4:02pm Obstructive sleep apnea Unknown Novembe r 2024 4:02pm Hypertension Unknown November 27, 2024 4:02pm Assessments Diagnosis Onset Date Resolution Status Admit Date BMI 31.0-31.9,adult chronicSeptember 2024 4:02pmObstructive sleep apneachronicSeptember 2024 4:02pmHypertensiondeletedSeptember 2024 4:02pm Plan of Treatment Author [facility]et [facility] 3:21pmFortunately, the patient is using and benefiting from treatment. Download was reviewed with patient. Current pressure is controlling apnea well and we will make no changes at this time. A prescription was sent to the [facility] for new supplies throughout the year. He was encouraged to continue to use his machine nightly, throughout the entire night as this does provide clinical benefit. He will follow-up in the sleep clinic in 1 year or sooner if problems. The patient is encouraged to continue efforts at progressive weight loss. Reduced body weight is broadly beneficial for general health, but has particularly important effects on obstructive sleep apnea severity. In some patients, weight loss can potentially resolve sleep apnea completely. Weight reduction strategies emphasizing balancing caloric intake and activity were discussed. Obstructive sleep apnea can significantly worsen blood pressure control. Patients with untreated sleep apnea have higher average blood pressures, but also have substantial variability in blood pressure day to day and even hour to hour. Treating underlying sleep apnea often reduces mean systolic and diastolic blood pressure, but can also substantially reduce variability between measurements. Future Tests Future scheduled test information is unavailable Pending Tests Pending diagnostic test information is unavailable Future Visits Future appointment information is unavailable Future Procedures Future procedure information is unavailable Future Medications Future medication information is unavailable Patient Instructions Patient instructions are unavailable
[2025-02-14 10:04] VITALS: BP 150/87; PULSE 62; TEMP 36.8; O2SAT 95; BMI 32.7
--- NOTE | 2025-02-14 10:21 | ECG_ITS ---
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 Measurements Intervals [place] Rate: 61 P: 57 TN: 166 QRS: 56 QRSD: 98 T: 45 QT: 396 QTc: 399 Interpretive Statements 1100 Sinus rhythm 9110 normal ECG Compared to ECG 01/13/2025 13:44:12 No significant changes Electronically Signed On 02-14-2025 15:07:53 EST by AROLDO OSPINA M.D.
--- NOTE | 2025-02-14 10:21 | XR_ITS ---
The [address] [address] Patient Name: JOSSELYN COHEN MRN: [id number] date: 1970 Sex: M Assigned Patient Location: ER Current Patient Location: ER Accession/Order Number: [id number] Exam Date: 02/14/2025 10:30 Report Date: 02/14/2025 11:18 At the request of: LYUBOV URBINA MD Procedure: XR chest 1V PA CHEST: CLINICAL HISTORY: Left shoulder pain COMPARISON: 04/13/2021 FINDINGS: Mildly enlarged cardiomediastinal swelling. Lungs clear. No effusion or pneumothorax. XR/XR chest 1V IMPRESSION: NEGATIVE CHEST. Impression dictated by: Juni Arita M.D. 02/14/2025 11:18 AM Dictation Location: [place] [address] Electronically authenticated by: [id number] Y Date: 02/14/2025 11:18
--- NOTE | 2025-02-14 10:22 | ED.GENADUL1 ---
HPI HPI - General Adult General Chief complaint: Extremity Problem, Nontraumatic Stated complaint: PO SHOULDER PAIN Time Seen by Provider: 02/14/25 10:12 Source: patient and family Mode of arrival: walk-in Limitations: no limitations History of Present Illness HPI narrative: 54-year-old male presented to the emergency department for pain in his left posterior shoulder. He has had this for 2 days. 2 days ago he had TURP performed and when he awoke from anesthesia his left posterior shoulder was hurting and it has been since then. states he did not sleep well last night and she found out just recently that his shoulders been hurting. She is worried about a blood clot, he has had DVTs before. He was given a 5-day course of Coumadin for this procedure. No fever or injury or cough. He does not complain of shortness of breath. Related Data Home Medications ?Medication ?Instructions ?Recorded ?Confirmed alfuzosin 10 mg tablet,extended 10 mg PO DAILY 01/13/25 02/14/25 release 24 hr aspirin 81 mg capsule 81 mg PO DAILY 01/13/25 02/14/25 dutasteride 0.5 mg capsule 0.5 mg PO DAILY 01/13/25 02/14/25 fenofibrate 150 mg capsule 150 mg PO DAILY 01/13/25 02/14/25 hydrochlorothiazide 12.5 mg capsule 12.5 mg PO DAILY 01/13/25 02/14/25 levothyroxine 50 mcg tablet 50 mcg PO DAILY 01/13/25 02/14/25 lisinopril 5 mg tablet 5 mg PO DAILY 01/13/25 02/14/25 potassium bicarbonate-citric acid 20 meq PO DAILY 01/13/25 02/14/25 20 mEq effervescent tablet (Effer-K) simvastatin 40 mg tablet 40 mg PO DAILY 01/13/25 02/14/25 doxycycline hyclate 100 mg capsule 100 mg PO Q12H 02/14/25 02/14/25 Previous Rx's ?Medication ?Instructions ?Recorded mirabegron 50 mg tablet,extended 50 mg PO Q24H #10 tabs 01/27/25 release 24 hr (Myrbetriq) warfarin 2 mg tablet 2 mg PO DAILY #5 tabs 02/12/25 Allergies Allergy/AdvReac Type Severity Reaction Status Date / Time No Known Drug Allergies Allergy Verified 02/14/25 10:04 Opioid HPI Opioid Management Most Recent Opioid Data: Last Pain Scale 4 02/13/25, 08:40 Last Pain Assessment 02/13/25, 09:10 Last MAR Pain Assessment 02/13/25, 08:35 Review of Systems ROS Narrative A ten point review of systems is negative except as noted above. [facility] Medical History (Updated 02/14/25 @ 12:35 by David Tobin MD) Sleep apnea ?G47.30 - Sleep apnea, unspecified (ICD-10) Hypothyroidism ?E03.9 - Hypothyroidism, unspecified (ICD-10) Postoperative nausea and vomiting ?R11.2 - Nausea with vomiting, unspecified (ICD-10) ?Z98.890 - Other specified postprocedural states (ICD-10) DVT (deep venous thrombosis) ?I82.409 - Acute embolism and thrombosis of unspecified deep veins of unspecified lower extremity (ICD-10) Thyroid disease ?E07.9 - Disorder of thyroid, unspecified (ICD-10) Right flank pain ?R10.A1 - (ICD-10) Post-void dribbling ?N39.43 - Post-void dribbling (ICD-10) Microscopic hematuria ?R31.29 - Other microscopic hematuria (ICD-10) Hypertension ?I10 - Essential (primary) hypertension (ICD-10) Kidney stone ?N20.0 - Calculus of kidney (ICD-10) Hyperlipidemia ?E78.5 - Hyperlipidemia, unspecified (ICD-10) Family history of prostate cancer ?Z80.42 - Family history of malignant neoplasm of prostate (ICD-10) Elevated PSA ?R97.20 - Elevated prostate specific antigen [PSA] (ICD-10) Chronic prostatitis ?N41.1 - Chronic prostatitis (ICD-10) BPH with urinary obstruction ?N40.1 - Benign prostatic hyperplasia with lower urinary tract symptoms (ICD-10) ?N13.8 - Other obstructive and reflux uropathy (ICD-10) Acquired hypothyroidism ?E03.9 - Hypothyroidism, unspecified (ICD-10) Surgical History S/P cystoscopy with ureteral stent placement (01/27/25) ?Z96.0 - Presence of urogenital implants (ICD-10) History of arthroscopic knee surgery ?Z98.890 - Other specified postprocedural states (ICD-10) History of extracorporeal shockwave lithotripsy (ESWL) ?Z98.890 - Other specified postprocedural states (ICD-10) History of prostate biopsy ?Z98.890 - Other specified postprocedural states (ICD-10) Family History Other Family history of hypertension Family history of seizures Family history of skin cancer Social History Within the past year, how often did you have a drink containing alcohol: never Score interpretation: A score less than 4 is consistent with normal alcohol consumption. 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 Skin:Warm, dry, no pallor noted.There is no rash noted. Head:Normocephalic, atraumatic Eye: Normal conjunctiva, no drainage Ears, Nose, Mouth, and Throat: oral mucosa is moist. Nares patent. Cardiovascular:Regular Rate and Rhythm Respiratory:Patient is in no distress, no accessory muscle use, lungs are clear to auscultation, no wheezing, rales or rhonchi Back:non-tender, no bruise or rash on his shoulder area GI: Soft and nontender Musculoskeletal: Left shoulder has full range of motion. Arm is not swollen. Radial pulse 2+ Neurological:A&O, normal speech Psychiatric:Cooperative Constitutional Vital Signs, click to edit/add: Last Vital Signs Temp 98.2 F 02/14/25 10:04 Pulse 62 02/14/25 10:04 Resp 18 02/14/25 10:04 BP 150/87 H 02/14/25 10:04 Pulse Ox 95 02/14/25 10:04 O2 Del Method Room Air 02/14/25 10:04 Course Vital Signs Vital signs: Vital Signs Temperature 98.2 F 02/14/25 10:04 Pulse Rate 62 02/14/25 10:04 Respiratory Rate 18 02/14/25 10:04 Blood Pressure 150/87 H 02/14/25 10:04 Pulse Oximetry 95 02/14/25 10:04 Oxygen Delivery Method Room Air 02/14/25 10:04 Temperature 98.2 F 02/14/25 10:04 Pulse Rate 62 02/14/25 10:04 Respiratory Rate 18 02/14/25 10:04 Blood Pressure 150/87 H 02/14/25 10:04 Pulse Oximetry 95 02/14/25 10:04 Oxygen Delivery Method Room Air 02/14/25 10:04 Medical Decision Making MDM Narrative Medical decision making narrative: His workup here is negative. No evidence of acute coronary syndrome. No evidence of pulmonary embolism or pneumothorax or pneumonia. Findings are discussed thoroughly with the patient and his and he is discharged home. Differential Diagnosis Differential Diagnosis: PE, muscle pain, [place], pneumothorax Lab Data Lab results reviewed: Yes I reviewed the patient's lab results Labs: Lab Results 02/14/25 Range/Units 10:25 WBC 9.0 (4.0-11.0) 10^3/uL RBC 4.51 L (4.70-6.10) 10^6/uL Hgb 13.7 L (14.0-18.0) g/dL Hct 40.5 L (42.0-54.0) % MCV 89.8 (80.0-94.0) fL MCH 30.4 (25.9-34.0) pg MCHC 33.8 (29.9-35.2) g/dL RDW 12.3 (11.0-15.0) % Plt Count 272 (150-450) 10^3/uL MPV 9.5 (9.5-13.5) fL Neut % (Auto) 61.3 (43.0-75.0) % Lymph % (Auto) 26.7 (20.5-60.0) % Winn % (Auto) 9.5 (1.7-12.0) % Eos % (Auto) 1.7 (0.9-7.0) % Baso % (Auto) 0.4 (0.2-2.0) % Neut # (Auto) 5.5 (1.4-6.5) 10^3/uL Lymph # (Auto) 2.4 (1.2-3.8) 10^3/uL Winn # (Auto) 0.9 H (0.3-0.8) 10^3/uL Eos # (Auto) 0.2 (0.0-0.7) 10^3/uL Baso # (Auto) 0.0 (0.0-0.1) 10^3/uL Abs Immat Gran (auto) 0.04 H (0.00-0.03) 10^3/uL Imm/Tot Granulo (auto) 0.4 (0.0-0.5) % Sodium 140 (136-145) mmol/L Potassium 3.7 (3.5-5.1) mmol/L Chloride 105 (98-107) mmol/L Carbon Dioxide 26.2 (21.0-32.0) mmol/L Anion Gap 12.5 BUN 21.0 H (7.0-18.0) mg/dL Creatinine 1.55 H (0.70-1.30) mg/dL Est GFR ( Amer) 57 L (>=60 mL/min/1.73m^2) Est GFR (Non-Af Amer) 47 L (>=60 mL/min/1.73m^2) BUN/Creatinine Ratio 13.5 Glucose 102 (74-106) mg/dL Calcium 8.7 (8.5-10.1) mg/dL Troponin I High Sens 6.7 (4.0-76.1) pg/mL Imaging Data Chest x-ray: Radiologist's impression: ITS Impressions Chest X-Ray 02/14/25 10:21 IMPRESSION: NEGATIVE CHEST. Impression dictated by: Juni Arita M.D. 02/14/2025 11:18 AM Dictation Location: [place] Electronically authenticated by: [id number] Y Date: 02/14/2025 11:18 Shoulder X-Ray 02/14/25 10:27 IMPRESSION: No acute bony process. Impression dictated by: Juni Arita M.D. 02/14/2025 11:19 AM Dictation Location: [place] Electronically authenticated by: [id number] Y Date: 02/14/2025 11:19 Chest CTA 02/14/25 11:12 IMPRESSION: Bibasilar pleural parenchymal bands and or subsegmental atelectasis. Negative for acute pleural-parenchymal disease or acute pulmonary embolism to the segmental level. Impression dictated by: Juni Arita M.D. 02/14/2025 12:20 PM Dictation Location: [place] [address] Electronically authenticated by: [id number] Y Date: 02/14/2025 12:20 ECG Data Attestation: I personally reviewed and interpreted this ECG as follows: (EKG on my interpretation shows sinus rhythm with rate of 61 and no acute change.) Discharge Plan Discharge Chief Complaint: Extremity Problem, Nontraumatic Clinical Impression: Left shoulder pain Patient Disposition: Home, Self-Care Time of Disposition Decision: 12:34 Condition: Good Mode of Transportation: Private Vehicle Prescriptions / Home Meds: No Action mirabegron [Myrbetriq] 50 mg tablet extended release 24 hr 50 mg PO Q24H Qty: 10 0RF warfarin 2 mg tablet 2 mg PO DAILY Qty: 5 0RF alfuzosin 10 mg tablet extended release 24 hr 10 mg PO DAILY dutasteride 0.5 mg capsule 0.5 mg PO DAILY hydrochlorothiazide 12.5 mg capsule 12.5 mg PO DAILY levothyroxine 50 mcg tablet 50 mcg PO DAILY lisinopril 5 mg tablet 5 mg PO DAILY simvastatin 40 mg tablet 40 mg PO DAILY aspirin 81 mg capsule 81 mg PO DAILY Effer-K 20 mEq tablet, effervescent 20 meq PO DAILY fenofibrate 150 mg capsule 150 mg PO DAILY doxycycline hyclate 100 mg capsule 100 mg PO Q12H Print Language: Turkish Instructions: Shoulder Pain (ED) Referrals: CRISTY PINA [Primary Care Provider] - 1 week
--- NOTE | 2025-02-14 10:27 | XR_ITS ---
The [address] [address] Patient Name: JOSSELYN COHEN MRN: [id number] date: 1970 Sex: M Assigned Patient Location: ER Current Patient Location: ER Accession/Order Number: [id number] Exam Date: 02/14/2025 10:30 Report Date: 02/14/2025 11:19 At the request of: LYUBOV URBINA MD Procedure: XR shoulder LT min 2V LEFT SHOULDER - - 3 views CLINICAL HISTORY: pain, atraumatic COMPARISON: None FINDINGS: No fracture malalignment. Mild AC joint degenerative change. Soft tissues unremarkable. XR/XR shoulder LT min 2V IMPRESSION: No acute bony process. Impression dictated by: Juni Arita M.D. 02/14/2025 11:19 AM Dictation Location: [place] [address] Electronically authenticated by: [id number] Y Date: 02/14/2025 11:19
--- OUTSIDE RECORDS SUMMARY | 2025-02-14 10:28 | XMS_ITS | Patient Health Record ---
Author Organization [facility] in [place] Address [address] [place] [address] Care Team Providers Care Project Geophysicist Name Role Phone Usama Garcia Primary Care [...]
[2025-02-14 10:39] LABS: Hematocrit 40.5 % (42.0-54.0); Hemoglobin 13.7 g/dL (14.0-18.0); Immature Granulocytes Abs Auto 0.04 10^3/uL (0.00-0.03); Immature Granulocytes Pct Auto 0.4 % (0.0-0.5); Lymphocytes Absolute Auto 2.4 10^3/uL (1.2-3.8); Mean Corpuscular HGB Conc 33.8 g/dL (29.9-35.2); Mean Corpuscular Hemoglobin 30.4 pg (25.9-34.0); Mean Corpuscular Volume 89.8 fL (80.0-94.0); Platelet Count 272 10^3/uL (150-450); Red Blood Count 4.51 10^6/uL (4.70-6.10); White Blood Count 9.0 10^3/uL (4.0-11.0)
[2025-02-14 10:56] LABS: Anion Gap 12.5; Blood Urea Nitrogen 21.0 mg/dL (7.0-18.0); Calcium 8.7 mg/dL (8.5-10.1); Carbon Dioxide 26.2 mmol/L (21.0-32.0); Chloride 105 mmol/L (98-107); Estimated GFR (African America 57 (>=60 mL/min/1.73m^2); Estimated GFR (Non-African Ame 47 (>=60 mL/min/1.73m^2); Glucose 102 mg/dL (74-106); Potassium 3.7 mmol/L (3.5-5.1); Sodium 140 mmol/L (136-145)
--- NOTE | 2025-02-14 11:12 | CT_ITS ---
The [address] [address] Patient Name: JOSSELYN COHEN MRN: [id number] date: 1970 Sex: M Assigned Patient Location: ER Current Patient Location: Accession/Order Number: [id number] Exam Date: 02/14/2025 11:25 Report Date: 02/14/2025 12:20 At the request of: LYUBOV URBINA MD Procedure: CT angio chest CTA chest CLINICAL DATA: Shoulder Pain, history of deep venous thrombosis. TECHNIQUE: Intravenous contrast-enhanced CT angiography of the chest was performed. Axial, sagittal, coronal, and 3D-dimensional reconstructions were created and reviewed. These CT exams were performed using one or more of the following dose reduction techniques: Automated exposure control, adjustment of the mA and/or kV according to patient size, or use of iterative reconstruction technique. COMPARISON: Chest x-ray 02/14/2025. FINDINGS: Chest: Mediastinum:Low lung volumes with slight prominence of the cardiac size, probably technical. No effusion. No pathologic adenopathy. No central to segmental branch pulmonary artery emboli. Lungs:Minimal bibasilar atelectasis versus scarring most pronounced on the left. No airspace opacity effusion or pneumothorax. Minimal biapical ground glass opacity likely interstitial edema. Abd: Suspect fatty infiltration of the liver.[ Soft tissues/Bones: Degenerative changes of the thoracic spine. CT/CT angio chest IMPRESSION: Bibasilar pleural parenchymal bands and or subsegmental atelectasis. Negative for acute pleural-parenchymal disease or acute pulmonary embolism to the segmental level. Impression dictated by: Juni Arita M.D. 02/14/2025 12:20 PM Dictation Location: [place] [address] Electronically authenticated by: [id number] Y Date: 02/14/2025 12:20
== END 2025-02-14 12:42 | disposition home or self-care (01) ==
PROVIDERS: Emergency Provider Emergency Medicine
DX: M25.512 Pain in left shoulder (principal); Z98.890 Other specified postprocedural states; Z86.718 Personal history of other venous thrombosis and embolism; Z87.891 Personal history of nicotine dependence
CPT/HCPCS: 36415; 71045; 71275; 73030; 80048; 84484; 85025; 93005; 99285; Q9967